=== PATIENT | female | born 1995 | race African-American/Black ===

== ENCOUNTER 2021-11-19 18:48 | Emergency (ER) | payer SELFPAY ==
[~2021-11-19] VITALS: Ht 165.1 cm; Wt 66.0 kg
[2021-11-19] MEDS ORDERED: ACETAMINOPHEN 325MG TABLET PO ONE (20:00)
[2021-11-19] MEDS ORDERED: ACET-2708 MT (20:56)
[2021-11-19 21:15] VITALS: BP 105/64
== END 2021-11-19 21:16 | disposition home or self-care (01) ==
LOC: ER 18:48
DX: S83.8X2A Sprain of other specified parts of left knee, initial encounter (principal); M23.8X2 Other internal derangements of left knee; W01.0XXA Fall on same level from slipping, tripping and stumbling without subsequent striking against object, initial encounter; Y93.89 Activity, other specified; Y92.9 Unspecified place or not applicable
CPT/HCPCS: 73562; 81025; 99283

== ENCOUNTER 2022-02-06 21:24 | Emergency (ER) | payer SELFPAY ==
[~2022-02-06] VITALS: Ht 165.1 cm; Wt 66.0 kg
[~2022-02-06 21:24] MED LIST: ACET-2708 MT
[2022-02-06] MEDS ORDERED: MUPI15CR11 TP (22:41)
[2022-02-06 22:51] VITALS: BP 114/78
== END 2022-02-06 22:52 | disposition home or self-care (01) ==
LOC: ER 21:24
DX: L01.00 Impetigo, unspecified (principal)
CPT/HCPCS: 81025; 99283

== ENCOUNTER 2022-02-10 23:51 | Emergency (ER) | payer SELFPAY ==
[~2022-02-10] VITALS: Ht 165.1 cm; Wt 66.3 kg
[~2022-02-10 23:51] MED LIST changes: +MUPI15CR11 TP
[2022-02-11 00:02] VITALS: BP 102/68
[2022-02-11] MEDS ORDERED: AMOX1TAB16 MT (00:36)
== END 2022-02-11 00:41 | disposition home or self-care (01) ==
LOC: ER 23:51
DX: L01.00 Impetigo, unspecified (principal)
CPT/HCPCS: 99283